=== PATIENT | male | born 1955 | race Caucasian/White ===

== ENCOUNTER → 2023-11-23 14:16 | Outpatient (BNVA) | payer MEDICARE, SELFPAY | PROVIDERS: Visit Provider Nurse Practitioner Family | DX: L57.0 Actinic keratosis (principal); L57.8 Other skin changes due to chronic exposure to nonionizing radiation; L81.4 Other melanin hyperpigmentation; L82.1 Other seborrheic keratosis; D18.01 Hemangioma of skin and subcutaneous tissue | CPT/HCPCS: 17000; 99213 ==

== ENCOUNTER → 2024-05-23 09:12 | Outpatient (BNVA) | payer MEDICARE, SELFPAY | PROVIDERS: Visit Provider Nurse Practitioner Family | DX: L57.0 Actinic keratosis (principal); X32.XXXA Exposure to sunlight, initial encounter; L57.8 Other skin changes due to chronic exposure to nonionizing radiation; L81.4 Other melanin hyperpigmentation; L73.8 Other specified follicular disorders; L82.1 Other seborrheic keratosis; D18.01 Hemangioma of skin and subcutaneous tissue | CPT/HCPCS: 17000; 99214 ==

== ENCOUNTER → 2024-11-23 09:05 | Outpatient (BNVA) | payer MEDICARE, SELFPAY | PROVIDERS: Visit Provider Nurse Practitioner Family | DX: L57.8 Other skin changes due to chronic exposure to nonionizing radiation (principal); B35.3 Tinea pedis; L81.4 Other melanin hyperpigmentation; L82.1 Other seborrheic keratosis; B35.1 Tinea unguium; L57.0 Actinic keratosis; X32.XXXA Exposure to sunlight, initial encounter | CPT/HCPCS: 17000; 99214 ==